=== PATIENT | female | born 2005 | race Caucasian/White ===

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

== ENCOUNTER 2023-03-10 19:28 | Emergency (ER) | payer MEDICAID, SELFPAY ==
[2023-03-10 19:40] VITALS: PULSE 109; RESP 18; TEMP 36.8; O2SAT 99; BMI 28.1
--- NOTE | 2023-03-10 20:21 | CTR_ITS ---
PROCEDURE INFORMATION: Exam: CT Head Without Contrast Exam date and time: 03/10/2023 8:48 PM Age: 17 years old Clinical indication: Pain; Headache not specified; Additional info: MINAYA TECHNIQUE: Imaging protocol: Computed tomography of the head without contrast. Axial, coronal and sagittal reformatted images were created and reviewed. Radiation optimization: All CT scans at this facility use at least one of these dose optimization techniques: automated exposure control; mA and/or kV adjustment per patient size (includes targeted exams where dose is matched to clinical indication); or iterative reconstruction. REPORTING DATA: Count of CT and Cardiac NM exams in prior 12 months: This patient has received 0 known CTs and 0 known cardiac nuclear medicine studies in the 12 months prior to the current study. COMPARISON: No relevant prior studies available. RADIATION DOSE METRICS: Total DLP (mGy-cm): 1406.57 FINDINGS: Brain: No CT evidence of acute intracranial hemorrhage or acute territorial infarction. No significant mass effect or midline shift. Basal cisterns patent. Cerebral ventricles: Normal in size and configuration. Paranasal sinuses: Small left maxillary sinus polyp versus mucous retention cyst. No air-fluid levels. Mastoid air cells: Grossly unremarkable. Bones/joints: No acute osseous abnormality. Soft tissues: Grossly unremarkable. CT/CT head wo con* [id number] IMPRESSION: 1. No CT evidence of acute intracranial pathology. 2. Additional findings, as above.
--- NOTE | 2023-03-10 20:22 | ED_ITS ---
HPI - Headache General: Chief Complaint: Headache Stated Complaint: right side of face, numbness, head pain Time Seen by Provider: 03/10/23 20:16 Source: patient Mode of arrival: ambulatory Limitations: no limitations History of Present Illness: 17-year-old female states that roughly 3 hours ago she started having a headache states headaches a 6 out of 10 she had previous high headaches she denies being worse over the light she has some photophobia and phonophobia states she is eating some numbness on the right side of her face as well. No slurred speech no weakness has no other symptoms at this time. Associated symptoms: Deny chest pain, fever(s), nausea, rash or vomiting Review of Systems Const: Denies: fever(s), chills, body aches or change in appetite Eyes: Denies: blurry vision or eye discomfort ENMT: Denies: throat pain or dental pain Card: Denies: chest pain Resp: Denies: dyspnea GI: Denies: abdominal pain, nausea, vomiting or diarrhea Musc: Denies: neck pain or back pain Skin/Breast: Denies: rash Neuro: Reports: headache(s) PFSH ED PFSH: Medical History Costochondritis, acute Heart murmur Surgical History No pertinent past surgical history Family History Grandmother Breast cancer Maternal Diabetes Maternal Grandfather Diabetes Maternal Heart disease Maternal Hypercholesteremia Maternal Hypertension Maternal Denies family history of Colon cancer Ovarian cancer Uterine cancer Thyroid disease Stroke Physical Exam Const: COMMON NORMALS: no acute distress, patient oriented x3 and healthy appearing HENMT: COMMON NORMALS: normocephalic and atraumatic HEAD & SCALP: normocephalic and atraumatic Eye: COMMON NORMALS: Equal, round and reactive pupils present and EOMs intact bilaterally VISUAL REAGAN: No peripheral vision loss, No central vision loss, No left visual field cut, No right visual field cut, No bitemporal visual field cut, No binasal visual field cut and No visual field cut by quadrant PUPIL: Yes Equal, round and reactive pupils present EOM: No EOM abnormal Neck/C-Spine: COMMON NORMALS: full ROM and supple Chest: COMMONS NORMALS: normal inspection of the chest and normal palpation of entire chest wall Resp: COMMON NORMALS: normal respiratory effort, No retractions, No use of accessory muscles and clear to auscultation bilaterally AUSCULTATION: clear to auscultation bilaterally Cardio: COMMON NORMALS: regular rate, regular rhythm and No murmurs present (Cardio) RATE: regular rate RHYTHM: regular rhythm GI: COMMON NORMALS: Normal to inspection, nondistended, normoactive bowel sounds present, Soft to palpation, non-tender and no masses PALPATION: Yes Soft to palpation Extremity: COMMON NORMALS: normal to inspection and full ROM Neuro: COMMON NORMALS: patient oriented x3, moves all extremities and no focal motor deficits CRANIAL NERVES: Yes CN normal except as noted SPEECH: speech normal GAIT: Yes Normal gait present SENSORY EXAM: Yes extremities MOTOR EXAM: 5/5 motor strength present throughout Psych: COMMON NORMALS: mental status grossly normal, Normal thought process present and cooperative THOUGHT PROCESS: Normal thought process present Skin: COMMON NORMALS: no rashes or lesions noted and no wounds GENERAL SKIN EXAM: no rashes or lesions noted Course Vital Signs: Vital signs: Vital Signs Temperature 98.3 F 03/10/23 19:40 Pulse Rate 109 H 03/10/23 19:40 Respiratory Rate 18 03/10/23 19:40 Blood Pressure 117/82 03/10/23 20:30 Pulse Oximetry 99 03/10/23 20:30 MDM - Headache Medical Decision Making Patient presents here with a headache likely migraine headache with an aura likely causing her paresthesias to the paresthesias of the numbness of her face is resolved with her headache with a headache cocktail. Head CT here is normal she is stable for discharge she is to follow-up with PCP and return if worsening. Lab Data Radiology Impressions Head CT 03/10/23 20:[address]: [address] evidence of acute intracranial pathology. 2. Additional findings, as above. 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
[2023-03-10 20:26] VITALS: BP 130/93; O2SAT 99
[2023-03-10 20:30] VITALS: BP 117/82; O2SAT 99
[2023-03-10] MEDS: metoclopramide 5 mg/mL SDV 2 mL IVP (20:37)
[2023-03-10] MEDS: ketorolac 30 mg/mL INJ 15 MG IVP (20:38)
[2023-03-10] MEDS: diphenhydrAMINE 50 mg/mL SDV 1mL 25 MG IVP (20:38)
[2023-03-10 21:00] VITALS: BP 151/100
[2023-03-10 21:30] VITALS: BP 128/73; O2SAT 98
== END 2023-03-10 21:54 | disposition home or self-care (01) ==
PROVIDERS: Emergency Provider Emergency Medicine; PCP Family Medicine
DX: R51.9 Headache, unspecified (principal)
CPT/HCPCS: 70450; 96374; 96375; 99284; J1200; J1885; J2765

== ENCOUNTER 2023-03-28 15:24 | Emergency (ER) | payer MEDICAID, SELFPAY ==
[2023-03-28 15:28] VITALS: BP 133/86; PULSE 116; RESP 14; TEMP 37.2; O2SAT 97; BMI 28.1
--- NOTE | 2023-03-28 15:40 | ECG_ITS ---
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 Measurements Intervals [place] Rate: 119 P: 79 MT: 116 QRS: 76 QRSD: 85 T: -66 QT: 285 QTc: 401 Interpretive Statements SINUS TACHYCARDIA WITH SHORT MT INTERVAL ST DEVIATION AND MODERATE T-WAVE ABNORMALITY, CONSIDER ANTEROLATERAL ISCHEMIA [-0.1+ mV T-WAVE IN V3-V6] ST DEVIATION AND MODERATE T-WAVE ABNORMALITY, CONSIDER INFERIOR ISCHEMIA [-0.1+ mV T-WAVE IN II/aVF] No previous ECG available for comparison Electronically Signed On 03-29-2023 13:56:30 CDT by Micha Sanchez M.D. [id number]
[2023-03-28 15:49] VITALS: BP 137/94; PULSE 105; RESP 19; TEMP 37.6; O2SAT 97
--- NOTE | 2023-03-28 16:45 | ECG_ITS ---
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 Measurements Intervals [place] Rate: 103 P: 69 NE: 123 QRS: 70 QRSD: 87 T: -26 QT: 322 QTc: 422 Interpretive Statements SINUS TACHYCARDIA ST DEVIATION AND MODERATE T-WAVE ABNORMALITY, CONSIDER ANTERIOR ISCHEMIA [-0.1+ mV T-WAVE IN V3/V4] No previous ECG available for comparison Electronically Signed On 03-29-2023 13:54:51 CDT by Micha Sanchez M.D. [email or web address] [email or web address] Shield of California Foundationmer[facility].[employer]/store/OM/[id number]
--- NOTE | 2023-03-28 18:30 | XRR_ITS ---
PROCEDURE INFORMATION: Exam: XR Chest Exam date and time: 03/28/2023 6:40 PM Age: 17 years old Clinical indication: Pain; Chest pressure; Additional info: Chest pain TECHNIQUE: Imaging protocol: Radiologic exam of the chest. Views: 1 view. COMPARISON: No relevant prior studies available. FINDINGS: Lungs: Unremarkable. No consolidation. Pleural spaces: Unremarkable. No pleural effusion. No pneumothorax. Heart/Mediastinum: Unremarkable. No cardiomegaly. Bones/joints: Unremarkable. XR/XR chest 1V portable [id number] IMPRESSION: No acute findings.
--- NOTE | 2023-03-28 18:32 | W.ED.CHESTPA ---
HPI - Chest Pain General: Chief Complaint: Chest Pain Stated Complaint: chest pain Time Seen by Provider: 03/28/23 18:29 History of Present Illness: 17-year-old female comes in today for complaints of chest discomfort. Patient appears nontoxic. Patient appears in no acute distress. Patient reports this morning she started having some chest pain that was worsened with movement. Patient does have a history of depression and is presently on bupropion. Patient also has a implant for control. Associated symptoms: Deny dyspnea, fever(s), nausea or vomiting Review of Systems General: Reports: 10 or more systems reviewed and unremarkable except in HPI and below Const: Denies: fever(s) Eyes: Denies: eye discomfort ENMT: Denies: throat pain or nasal discharge Card: Reports: chest pain Resp: Denies: dyspnea GI: Denies: nausea or vomiting Musc: Denies: neck pain Skin/Breast: Denies: rash Neuro: Denies: headache(s) Psych: Denies: anxiety or depression PFSH ED PFSH: Medical History Costochondritis, acute Heart murmur Surgical History No pertinent past surgical history Family History Grandmother Breast cancer Maternal Diabetes Maternal Grandfather Diabetes Maternal Heart disease Maternal Hypercholesteremia Maternal Hypertension Maternal Denies family history of Colon cancer Ovarian cancer Uterine cancer Thyroid disease Stroke Physical Exam Const: COMMON NORMALS: alert HENMT: COMMON NORMALS: normocephalic HEAD & SCALP: normocephalic MOUTH: Normal oral and palatal mucosa present THROAT: posterior oropharynx abnormal erythema Neck/C-Spine: COMMON NORMALS: full ROM Chest: CHEST: Yes tenderness (Right anterior ribs) Resp: COMMON NORMALS: normal respiratory effort and clear to auscultation bilaterally AUSCULTATION: clear to auscultation bilaterally Cardio: COMMON NORMALS: regular rhythm RATE: tachycardic (110s) RHYTHM: regular rhythm GI: COMMON NORMALS: non-tender Extremity: COMMON NORMALS: no pedal edema Neuro: SENSORIUM/ORIENTATION: Yes alert Skin: COMMON NORMALS: turgor normal GENERAL SKIN EXAM: turgor normal Course Vital Signs: Vital signs: Vital Signs Temperature 99.7 F H 03/28/23 15:49 Pulse Rate 102 H 03/28/23 19:30 Respiratory Rate 23 H 03/28/23 19:30 Blood Pressure 122/84 03/28/23 19:30 Pulse Oximetry 97 03/28/23 19:30 Oxygen Delivery Me thod Room Air 03/28/23 19:30 MDM - Chest Pain Medical Decision Making 17-year-old female comes in today for complaints of chest wall pain since this morning. Patient reports movement makes it worse. On exam patient has some right anterior chest wall discomfort. Heart rates regular with some mild tachycardia in the 110s. No edema is noted in the extremity. Posterior pharynx is slightly erythematous. Differential diagnosis includes but not limited to myocarditis, ACS, costochondritis, viral infection. CBC and CMP were unremarkable. Troponin was negative. Chest x-ray showed no abnormality. Patient did have reproducible chest wall pain on palpation. Believe patient may have some costochondritis. Concerning though was patient's tachycardia which ranged between 100-120 in the ER. This could be benign or patient may be having episodes of SVT. I recommended follow-up with cardiology for further evaluation due to the chest discomfort and rapid heart rate. Case management was requested to set up appointment. Patient reported understanding agreed to plan. Lab Data 03/28/23 18:40 03/28/23 18:40 Radiology Impressions Chest X-Ray 03/28/23 18:30 IMPRESSION: No acute findings. Laboratory Results WBC 9.8 10^3/uL (4.5-13.0) 03/28/23 18:40 RBC 5.60 10^6/uL (4.1-5.3) H 03/28/23 18:40 Hgb 15.2 g/dL (11.5-15.3) 03/28/23 18:40 Hct 46.3 % (37.0-47.0) 03/28/23 18:40 MCV 82.7 fl (81-99) 03/28/23 18:40 MCH 27.1 pg (28.0-34.0) L 03/28/23 18:40 MCHC 32.8 g/dL (30.0-36.0) 03/28/23 18:40 RDW 14.4 % (12.1-15.1) 03/28/23 18:40 Plt Count 335 10^3/cmm (130-400) 03/28/23 18:40 MPV 9.7 fL (7.4-10.4) 03/28/23 18:40 Neut % (Auto) 69.5 % 03/28/23 18:40 Lymph % (Auto) 23.5 % 03/28/23 18:40 [place] % (Auto) 4.6 % 03/28/23 18:40 Eos % (Auto) 1.8 % 03/28/23 18:40 Baso % (Auto) 0.4 % 03/28/23 18:40 Neut # (Auto) 6.78 10^3/uL (1.8-8.0) 03/28/23 18:40 Lymph # (Auto) 2.3 10^3/uL (1.5-6.5) 03/28/23 18:40 [place] # (Auto) 0.5 10^3/uL (0.2-0.9) 03/28/23 18:40 Eos # (Auto) 0.2 10^3/uL (0.0-0.8) 03/28/23 18:40 Baso # (Auto) 0.0 10^3/uL (0.0-0.1) 03/28/23 18:40 Nucleated RBC % (auto) 0 % 03/28/23 18:40 Nucleated RBCs # 0.0 /100WBC 03/28/23 18:40 Sodium 140 mmol/L (136-145) 03/28/23 18:40 Potassium 4.0 mmol/L (3.5-5.1) 03/28/23 18:40 Chloride 103 mmol/L (98-107) 03/28/23 18:40 Carbon Dioxide 23 mmol/L (22-29) 03/28/23 18:40 Anion Gap 18.0 (5-19) 03/28/23 18:40 BUN 15 mg/dL (6-20) 03/28/23 18:40 Creatinine 0.6 mg/dL (0.5-0.9) 03/28/23 18:40 GFR Calculation 128.8 mL/min (90-130) 03/28/23 18:40 Glucose 81 mg/dL (65-115) 03/28/23 18:40 Calculated Osmolality 290 mOsm/kg (285-295) 03/28/23 18:40 Calcium 9.5 mg/dL (8.5-10.5) 03/28/23 18:40 Total Bilirubin 0.2 mg/dL (0.15-1.2) 03/28/23 18:40 AST 13 U/L (0-32) 03/28/23 18:40 ALT 11 U/L (0-33) 03/28/23 18:40 Alkaline Phosphatase 145 U/L (35-105) H 03/28/23 18:40 Troponin T Gen 5 ng/L 6 ng/L (0-10) 03/28/23 18:40 Total Protein 8.4 g/dL (6.6-8.7) 03/28/23 18:40 Albumin 5.1 g/dL (3.5-5.2) 03/28/23 18:40 Globulin 3.3 g/dL (1.3-4.6) 03/28/23 18:40 Discharge Plan Discharge Patient Disposition: Home Clinical Impression: Anterior chest wall pain, Tachycardia Condition: Stable Prescriptions: No Action Nexplanon 68 mg implant subdermal bupropion HCl 150 mg tablet extended release 24 hr 150 mg PO QAM naproxen [Naprosyn] 500 mg tablet 500 mg PO BID Qty: 30 1RF Discharge Orders: Discharge ED (Routine); Ordered 03/28/23 Ordered By: Bernardo Monroe Referrals: Marva Merida DO [Primary Care Provider] - Discharge Diet: Usual diet Discharge Activity: Increase activity as tolerated Patient Instructions: Costochondritis (ED) Activity Restrictions/Additional Instructions: Home and rest. Drink plenty of water. Use acetaminophen and/or ibuprofen as needed for pain. Follow-up with primary care. Return to ED for new concerns. 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
[2023-03-28 18:41] VITALS: PULSE 112; RESP 18; O2SAT 97
[2023-03-28 19:04] LABS: Basophils % 0.4 %; Eosinophils # 0.2 10^3/uL (0.0-0.8); Eosinophils % 1.8 %; Hematocrit 46.3 % (37.0-47.0); Hemoglobin 15.2 g/dL (11.5-15.3); Lymphocytes # 2.3 10^3/uL (1.5-6.5); Lymphocytes % 23.5 %; Mean Corpuscular HGB Conc 32.8 g/dL (30.0-36.0); Mean Corpuscular Hemoglobin 27.1 pg (28.0-34.0); Mean Corpuscular Volume 82.7 fl (81-99); Mean Platelet Volume 9.7 fL (7.4-10.4); Monocytes # 0.5 10^3/uL (0.2-0.9); Monocytes % 4.6 %; Neutrophils # 6.78 10^3/uL (1.8-8.0); Neutrophils % 69.5 %; Nucleated Red Blood Cells % 0 %; Platelet Count 335 10^3/cmm (130-400); Red Cell Distribution Width 14.4 % (12.1-15.1); White Blood Count 9.8 10^3/uL (4.5-13.0)
[2023-03-28 19:18] VITALS: BP 136/79; PULSE 97; RESP 22; O2SAT 98
--- NOTE | 2023-03-28 19:20 | PC.NURSE ---
Rounding with patient at shift change. Pain 4/10 in her chest at this time. Offered pain medication. Pt declined at this time , but will notify the staff if she needs anything.
[2023-03-28 19:30] VITALS: BP 122/84; PULSE 102; RESP 23; O2SAT 97
[2023-03-28 19:38] LABS: Alanine Aminotransferase 11 U/L (0-33); Albumin Level 5.1 g/dL (3.5-5.2); Alkaline Phosphatase 145 U/L (35-105); Aspartate Amino Transferase 13 U/L (0-32); Blood Urea Nitrogen 15 mg/dL (6-20); Calcium 9.5 mg/dL (8.5-10.5); Carbon Dioxide 23 mmol/L (22-29); Chloride 103 mmol/L (98-107); Globulin 3.3 g/dL (1.3-4.6); Glomerular Filtration Rate 128.8 mL/min (90-130); Glucose 81 mg/dL (65-115); Osmolality Calculated 290 mOsm/kg (285-295); Sodium 140 mmol/L (136-145); Total Bilirubin 0.2 mg/dL (0.15-1.2); Total Protein 8.4 g/dL (6.6-8.7)
[2023-03-28 19:44] LABS: Troponin T (5th) Once 6 ng/L (0-10)
[2023-03-28 20:21] VITALS: BP 127/62; RESP 14; O2SAT 99
--- NOTE | 2023-03-29 08:13 | DCPLANNER ---
Addendum entered by Jodie Gutierrez 05/19/23 09:08: Patient had a follow up appointment scheduled with [facility] - patient did attend appointment. Addendum entered by Jodie Gutierrez 04/02/23 08:48: Patient has a follow up appointment scheduled for Tuesday, May 16, 2023 at 9:[address] Pillai at [facility]. Addendum entered by Jodie Gutierrez 03/31/23 08:59: imaging manager received the following message from the [facility] clinic regarding follow up appointment: Attempted to call pt to schedule appt. Phone is not in service. On Bailee 11:16a Mar 30, 2023 Greta Chopra (Covering For: [facility] Front Office) Wrote To: [facility] Front Office Attempted to call pt to schedule appt. LVM On Mon 9:10a Mar 29, 2023 Greta Chopra (Covering For: [facility] Front Office) Wrote To: [facility] Front Office Attempted to call pt to schedule appt. LVM Original Note: imaging manager had message to schedule a follow up appointment for patient with cardiology. imaging manager sent patients information to the front office staff at [facility]. Patients information will be printed and reviewed. Clinic will call patient with appointment information.
== END 2023-03-28 20:23 | disposition home or self-care (01) ==
PROVIDERS: Emergency Provider Nurse Practitioner Family; PCP Family Medicine
DX: R07.89 Other chest pain (principal); R00.0 Tachycardia, unspecified
CPT/HCPCS: 71045; 80053; 84484; 85025; 93005; 99285

== ENCOUNTER 2024-04-25 14:53 | Emergency (ER) | payer MEDICAID, SELFPAY ==
[2024-04-25 15:01] VITALS: BP 129/88; PULSE 104; RESP 16; TEMP 36.7; O2SAT 99; BMI 27.8
--- NOTE | 2024-04-25 15:01 | ECG_ITS ---
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 Measurements Intervals [place] Rate: 96 P: 80 MT: 115 QRS: 51 QRSD: 90 T: 22 QT: 351 QTc: 444 Interpretive Statements SINUS RHYTHM WITH SHORT MT INTERVAL ST DEVIATION AND MODERATE T-WAVE ABNORMALITY, CONSIDER ANTERIOR ISCHEMIA [-0.1+ mV T-WAVE IN V3/V4] Compared to ECG 03/28/2023 16:51:55 Short MT interval now present Sinus tachycardia no longer present T-wave abnormality still present Possible ischemia still present Electronically Signed On 04-25-2024 23:31:17 CDT by Kris Nolen M.D. [id number]
[2024-04-25 15:48] LABS: Basophils % 0.3 %; Eosinophils # 0.1 10^3/uL (0.0-0.8); Eosinophils % 0.9 %; Hematocrit 45.3 % (36-47); Lymphocytes # 1.7 10^3/uL (1.5-6.5); Lymphocytes % 17.1 %; Mean Corpuscular HGB Conc 33.8 g/dL (30-55); Mean Corpuscular Hemoglobin 28.1 pg (27-33); Mean Corpuscular Volume 83.1 fl (85-98); Mean Platelet Volume 10.9 fL (7.4-10.4); Monocytes # 0.5 10^3/uL (0.2-0.9); Monocytes % 5.1 %; Neutrophils # 7.59 10^3/uL (1.8-8.0); Neutrophils % 76.4 %; Nucleated Red Blood Cells % 0 %; Platelet Count 293 10^3/cmm (157-399); Red Blood Count 5.45 10^6/uL (3.85-5.65); Red Cell Distribution Width 12.1 % (12.1-15.1); White Blood Count 9.94 10^3/uL (4.5-13.0)
[2024-04-25 15:52] VITALS: PULSE 86; O2SAT 96
--- NOTE | 2024-04-25 15:58 | ED_ITS ---
HPI - Chest Pain 2 General: Chief Complaint: Chest Pain Stated Complaint: chest pain, SOB Time Seen by Provider: 04/25/24 15:26 History of Present Illness: 18-year-old female comes in today with c hest pain that started while sitting at her desk at work. Patient has had a similar episode 1 year ago. Patient reports movement does seem to make the pain worse. Patient denies any increased anxiety or history of panic disorder. Patient appears nontoxic. Skin is warm and dry color is pink. Patient had been evaluated 1 year ago after her episodes at that time. Patient was placed on metoprolol tartrate but stopped taking the medication due to causing difficulty with concentration and thought. Review of Systems 2 General: Reports: 10 or more systems reviewed and unremarkable except in HPI and below Card: Reports: chest pain PFSH ED 2 PFSH: Medical History Costochondritis, acute Heart murmur Surgical History No pertinent past surgical history Family History Grandmother Breast cancer Maternal Diabetes Maternal Grandfather Diabetes Maternal Heart disease Maternal Hypercholesteremia Maternal Hypertension Maternal Social History Smoking and tobacco/nicotine status: never used tobacco/nicotine Female Reproductive History: Date of last menstrual period: 04/25/24 Physical Exam 2 Const: COMMON NORMALS: alert HENMT: COMMON NORMALS: normocephalic HEAD & SCALP: normocephalic Neck/C-Spine: COMMON NORMALS: full ROM Chest: COMMONS NORMALS: normal inspection of the chest Resp: COMMON NORMALS: normal respiratory effort and clear to auscultation bilaterally AUSCULTATION: clear to auscultation bilaterally Cardio: COMMON NORMALS: regular rate and regular rhythm RATE: regular rate RHYTHM: regular rhythm GI: COMMON NORMALS: Soft to palpation and non-tender PALPATION: Yes Soft to palpation Back/Pelvis: COMMON NORMALS: thoracic and lumbar spine normal to inspection Extremity: COMMON NORMALS: full ROM Neuro: SENSORIUM/ORIENTATION: Yes alert Skin: COMMON NORMALS: turgor normal GENERAL SKIN EXAM: turgor normal Course 2 Vital Signs: Vital signs: Vital Signs Temperature 98.0 F 04/25/24 15:01 Pulse Rate 93 04/25/24 18:21 Respiratory Rate 16 04/25/24 15:01 Blood Pressure 128/67 04/25/24 18:21 Pulse Oximetry 98 04/25/24 18:21 Oxygen Delivery Me thod Room Air 04/25/24 17:45 MDM - Chest Pain Medical Decision Making 18-year-old female comes in today for complaints of chest discomfort. Patient appears nontoxic. Patient appears no acute distress. Respirations are even lungs are clear to auscultation. Vital signs are normal. Differential diagnosis includes not limited to anemia, tachycardia, hypertension, unlikely ACS, endocarditis, myocarditis, mitral valve regurgitation, . D-dimer was negative. Blood glucose was 458. Ketones are negative. Troponin is negative. Sodium was 135. Urine was contaminated with menstrual cycle. Remainder of labs were unremarkable. Patient's A1c was 11.2. Patient will be started on metformin 500 mg twice a day with recommendations to follow-up with primary care in 1 to 2 weeks for recheck. Patient was given 1 L of IV fluids and 8 units of insulin in the ER which brought blood glucose down to 230. Patient was discharged home in stable condition with recommendations for follow- up or return. Lab Data 04/25/24 15:38 04/25/24 15:38 Laboratory Results WBC 9.94 10^3/uL (4.5-13.0) 04/25/24 15:38 RBC 5.45 10^6/uL (3.85-5.65) 04/25/24 15:38 Hgb 15.30 g/dL (12.4-14.8) H 04/25/24 15:38 Hct 45.3 % (36-47) 04/25/24 15:38 MCV 83.1 fl (85-98) L 04/25/24 15:38 MCH 28.1 pg (27-33) 04/25/24 15:38 MCHC 33.8 g/dL (30-55) 04/25/24 15:38 RDW 12.1 % (12.1-15.1) 04/25/24 15:38 Plt Count 293 10^3/cmm (157-399) 04/25/24 15:38 MPV 10.9 fL (7.4-10.4) H 04/25/24 15:38 Neut % (Auto) 76.4 % 04/25/24 15:38 Lymph % (Auto) 17.1 % 04/25/24 15:38 [place] % (Auto) 5.1 % 04/25/24 15:38 Eos % (Auto) 0.9 % 04/25/24 15:38 Baso % (Auto) 0.3 % 04/25/24 15:38 Neut # (Auto) 7.59 10^3/uL (1.8-8.0) 04/25/24 15:38 Lymph # (Auto) 1.7 10^3/uL (1.5-6.5) 04/25/24 15:38 [place] # (Auto) 0.5 10^3/uL (0.2-0.9) 04/25/24 15:38 Eos # (Auto) 0.1 10^3/uL (0.0-0.8) 04/25/24 15:38 Baso # (Auto) 0.0 10^3/uL (0.0-0.1) 04/25/24 15:38 Nucleated RBC % (auto) 0 % 04/25/24 15:38 Nucleated RBCs # 0.0 /100WBC 04/25/24 15:38 D-Dimer <= 0.27 ug/mLFEU (0-0.59) 04/25/24 15:38 Sodium 135 mmol/L (136-145) L 04/25/24 15:38 Potassium 4.1 mmol/L (3.5-5.1) 04/25/24 15:38 Chloride 99 mmol/L (98-107) 04/25/24 15:38 Carbon Dioxide 23 mmol/L (22-29) 04/25/24 15:38 Anion Gap 17.1 (5-19) 04/25/24 15:38 BUN 9 mg/dL (6-20) 04/25/24 15:38 Creatinine 0.7 mg/dL (0.5-0.9) 04/25/24 15:38 GFR Calculation 106.7 mL/min (90-130) 04/25/24 15:38 Glucose 453 mg/dL (65-115) H 04/25/24 15:38 POC Glucose 232 mg/dL (70-110) H 04/25/24 17:38 Estimat Average Glucose 275 04/25/24 15:38 Hemoglobin A1c 11.2 % (4.0-6.0) H 04/25/24 15:38 Calculated Osmolality 298 mOsm/kg (285-295) H 04/25/24 15:38 Calcium 9.5 mg/dL (8.5-10.5) 04/25/24 15:38 Total Bilirubin 0.3 mg/dL (0.15-1.2) 04/25/24 15:38 AST 12 U/L (0-32) 04/25/24 15:38 ALT 13 U/L (0-33) 04/25/24 15:38 Alkaline Phosphatase 159 U/L (35-105) H 04/25/24 15:38 Creatine Kinase 90 U/L (26-192) 04/25/24 15:38 Troponin T Baseline < 6 ng/L (0-10) 04/25/24 15:38 Troponin T 120 Minute 6.00 ng/L (0-10) 04/25/24 17:18 Delta Troponin T 0.17648 ABS# (0-10) 04/25/24 17:18 C-Reactive Protein 5.6 mg/L (0.0-4.9) H 04/25/24 15:38 NT-Pro-B Natriuret Pep 80 pg/mL (0-125) 04/25/24 15:38 Total Protein 7.8 g/dL (6.6-8.7) 04/25/24 15:38 Albumin 4.7 g/dL (3.5-5.2) 04/25/24 15:38 Globulin 3.1 g/dL (1.3-4.6) 04/25/24 15:38 HCG, Qual Negative (Negative) 04/25/24 15:38 Urine Color Red (Yellow) A 04/25/24 16:15 Urine Appearance Cloudy (CLEAR) A 04/25/24 16:15 Urine pH 5 (5-7) 04/25/24 16:15 Ur Specific [place] 1.010 (1.005-1.030) 04/25/24 16:15 Urine Protein 1+ (Negative) H 04/25/24 16:15 Urine Glucose (UA) 4+ (Normal) H 04/25/24 16:15 Urine Ketones 1+ (Negative) H 04/25/24 16:15 Urine Blood 3+ (Negative) H 04/25/24 16:15 Urine Nitrate Not tested (Negative) A 04/25/24 16:15 Urine Bilirubin Neg (Negative) 04/25/24 16:15 Urine Urobilinogen Not tested mg/dL (Negative) A 04/25/24 16:15 Ur Leukocyte Esterase Not tested (Negative) A 04/25/24 16:15 Urine RBC Too numerous to cnt /hpf (0-2) H 04/25/24 16:15 Urine WBC 0-4 /hpf (0-5) H 04/25/24 16:15 Ur Squamous Epith Cells None /hpf (0-5) 04/25/24 16:15 Amorphous Sediment Not Reportable 04/25/24 16:15 Urine Bacteria None /hpf (NONE) 04/25/24 16:15 Urine Mucus None /hpf 04/25/24 16:15 Serum Ketones Negative (Negative) 04/25/24 15:51 No radiology studies performed this visit Discharge Plan Discharge Patient Disposition: Home Clinical Impression: Hyperglycemia Condition: Stable Prescriptions: New metformin 500 mg tablet 500 mg PO BIDWMEAL Qty: 60 0RF No Action bupropion HCl 150 mg tablet extended release 24 hr 150 mg PO QAM metoprolol tartrate 25 mg tablet 25 mg PO BID Qty: 180 1RF Discharge Orders: Discharge ED (Routine); Ordered 04/25/24 Ordered By: Bernardo Monroe Referrals: Marva Merida DO [Primary Care Provider] - Discharge Diet: Diabetic Discharge Activity: Increase activity as tolerated Patient Instructions: Type 2 Diabetes in Adults: New Diagnosis (DC), Diabetes and Nutrition (ED) Activity Restrictions/Additional Instructions: Take metformin as directed. Follow-up with primary care in 1 to 2 weeks for recheck. Return to ED for new concerns or worsening symptoms such as persistent nausea and vomiting, high fever, or increasing shortness of breath. 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
[2024-04-25 16:14] LABS: Troponin(5th) Baseline < 6 ng/L (0-10)
[2024-04-25 16:16] LABS: D Dimer <= 0.27 ug/mLFEU (0-0.59)
[2024-04-25 16:17] LABS: Alanine Aminotransferase 13 U/L (0-33); Albumin Level 4.7 g/dL (3.5-5.2); Alkaline Phosphatase 159 U/L (35-105); Anion Gap 17.1 (5-19); Aspartate Amino Transferase 12 U/L (0-32); Blood Urea Nitrogen 9 mg/dL (6-20); C Reactive Protein 5.6 mg/L (0.0-4.9); Calcium 9.5 mg/dL (8.5-10.5); Carbon Dioxide 23 mmol/L (22-29); Chloride 99 mmol/L (98-107); Creatine Phosphokinase 90 U/L (26-192); Creatinine Clr Calc Pharmacy 140.1601; Globulin 3.1 g/dL (1.3-4.6); Glomerular Filtration Rate 106.7 mL/min (90-130); Glucose 453 mg/dL (65-115); NT Pro B Type Natriuretic Pept 80 pg/mL (0-125); Osmolality Calculated 298 mOsm/kg (285-295); Potassium 4.1 mmol/L (3.5-5.1); Sodium 135 mmol/L (136-145); Total Bilirubin 0.3 mg/dL (0.15-1.2); Total Protein 7.8 g/dL (6.6-8.7)
[2024-04-25 16:21] LABS: HCG, Serum Qual Negative (Negative)
[2024-04-25 16:38] LABS: Ketone (Acetest) Serum Negative (Negative)
[2024-04-25 16:42] LABS: Glucose Point of Care 409 mg/dL (70-110)
[2024-04-25 16:44] VITALS: BP 131/86; PULSE 95; O2SAT 97
[2024-04-25] MEDS: sodium chloride 0.9% 1,000 ML 999 ML IV (16:44)
[2024-04-25 16:47] LABS: Bilirubin Urine Neg (Negative); Blood Urine 3+ (Negative); Glucose Urine UA 4+ (Normal); Ketones Urine 1+ (Negative); Nitrate Urine Not Tested (Negative); Protein Urine 1+ (Negative); Urine Appearance Cloudy (CLEAR); Urine Color Red (Yellow); Urobilinogen Urine Not Tested mg/dL (Negative); pH Urine 5 (5-7)
[2024-04-25] MEDS: metformin 500 mg Tablet PO (16:47)
[2024-04-25 16:48] LABS: Add Urine Microscopic? YES; Leukocyte Esterase Urine Not Tested (Negative)
[2024-04-25 16:50] LABS: RBC Urine TOO NUMEROUS TO CNT /hpf (0-2); WBC Urine 0-4 /hpf (0-5)
[2024-04-25 16:51] LABS: Add Urine Culture? Yes
[2024-04-25] MEDS: insulin regular-human 100 units/1 mL 8 UNIT IVP (16:51)
[2024-04-25 17:07] LABS: Estmated Average Glucose 275; Hemoglobin A1C 11.2 % (4.0-6.0)
--- NOTE | 2024-04-25 17:15 | ECG_ITS ---
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 Measurements Intervals [place] Rate: 98 P: 49 WA: 118 QRS: 42 QRSD: 86 T: 24 QT: 347 QTc: 445 Interpretive Statements SINUS RHYTHM WITH SHORT WA INTERVAL NONSPECIFIC T-WAVE ABNORMALITY Compared to ECG 04/25/2024 14:54:09 Possible ischemia no longer present T-wave abnormality still present Electronically Signed On 04-26-2024 11:57:38 CDT by Alan Joiner M.D. [id number]
[2024-04-25 17:42] LABS: Glucose Point of Care 232 mg/dL (70-110)
[2024-04-25 17:45] VITALS: BP 119/83; PULSE 96; O2SAT 99
[2024-04-25 17:49] LABS: Troponin 5 2HR Delta 0.00001 ABS# (0-10)
[2024-04-25 18:21] VITALS: BP 128/67; PULSE 93; O2SAT 98
== END 2024-04-25 18:23 | disposition home or self-care (01) ==
PROVIDERS: Emergency Provider Nurse Practitioner Family; PCP Family Medicine
DX: R73.9 Hyperglycemia, unspecified (principal); Z79.899 Other long term (current) drug therapy
CPT/HCPCS: 36415; 36416; 80053; 81001; 82009; 82550; 82962; 83036; 83880; 84484; 84703; 85025; 85378; 86140; 87086; 93005; 96374; 99284; J1815; J7030

== ENCOUNTER 2025-04-09 08:14 | Outpatient (CLI) | payer OTHER, SELFPAY ==
[2025-04-09 09:14] LABS: Estmated Average Glucose 186; Hemoglobin A1C 8.1 % (4.0-6.0)
[2025-04-09 09:27] LABS: Alanine Aminotransferase 8 U/L (0-33); Albumin Level 4.3 g/dL (3.5-5.2); Alkaline Phosphatase 113 U/L (35-105); Anion Gap 16.4 (5-19); Aspartate Amino Transferase 12 U/L (0-32); Blood Urea Nitrogen 14 mg/dL (6-20); Calcium 9.1 mg/dL (8.5-10.5); Carbon Dioxide 23 mmol/L (22-29); Chloride 102 mmol/L (98-107); Cholesterol 175 mg/dL (0-200); Globulin 3.3 g/dL (1.3-4.6); Glomerular Filtration Rate 126.2 mL/min (90-130); Glucose 118 mg/dL (65-115); HDL Cholesterol 53 mg/dL (60-100); LDL Cholesterol Calculated 112 mg/dL (50-129); LDL HDL Ratio 2.11 RATIO (0.00-3.22); Osmolality Calculated 286 mOsm/kg (285-295); Potassium 4.4 mmol/L (3.5-5.1); Sodium 137 mmol/L (136-145); Total Bilirubin 0.2 mg/dL (0.15-1.2); Total Protein 7.6 g/dL (6.6-8.7); Triglycerides 51 mg/dL (0-150)
[2025-04-09 09:31] LABS: Creatinine Urine, Random 62 mg/dL (28-217); Microalbum Creatinine Ratio Ur 16 mg/dL (0-20); Microalbumin Random Urine 1 ug/dL (0-20)
== END 2025-04-09 08:15 | disposition home or self-care (01) ==
PROVIDERS: PCP Family Medicine; Visit Provider Internal Medicine
DX: E10.9 Type 1 diabetes mellitus without complications (principal); E78.5 Hyperlipidemia, unspecified
CPT/HCPCS: 36415; 80053; 80061; 82044; 83036